=== PATIENT | male | born 1980 | race American Indian/Alaskan Native ===

== ENCOUNTER 2016-05-26 11:47 | Emergency (ER) | payer OTHER ==
[2016-05-26] MEDS ORDERED: TORADOL IM ONE (17:37)
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
[2016-05-26 18:16] VITALS: BP 106/73
== END 2016-05-26 18:15 | disposition home or self-care (01) ==
LOC: ED 11:47
DX: M54.5 Low back pain (principal); V79.5 Passenger on bus injured in collision with other and unspecified motor vehicles in traffic accident
CPT/HCPCS: 96372; 99282; J1885

== ENCOUNTER 2018-03-24 19:26 | Emergency (ER) | payer OTHER ==
[2018-03-24 19:37] VITALS: BP 105/77
[2018-03-24] MEDS ORDERED: DECADRON IM STA (20:12)
[2018-03-24] MEDS ORDERED: TORADOL IM ONE (20:12)
[2018-03-24] MEDS ORDERED: ZOFRAN ODT PO ONE (20:12)
--- NOTE | 2018-03-24 20:12 | Emergency Department Report ---
ED General Adult HPI - General Chief complaint: Back Pain/Injury Stated complaint: BACK PAIN, RT SHOULDER PAIN Time Seen by Provider: 03/24/18 19:50 Source: patient Mode of arrival: Ambulatory Limitations: No Limitations - History of Present Illness Initial comments: This is 37-year-old male here in ED with complaint of lower back pain and right shoulder pain after accidentally falling down 8 steps yesterday. He is reported in the pain is located in his shoulder joint and mid back 9 of the tendon achy. Worse with movement and no alleviating factors. He said he did not take any medication. Patient reports that when he fell and got up he felt weakness in his legs but he is able to ambulate. Denies any numbness certainly to extremities at present. Denies any nausea vomiting, abdominal pain or back pain. Denies any chest pain or shortness of breath. Patient denies any past medical problems. Denies a head injury or headache. Denies any loss of bowel or bladder function MD Complaint: fall Onset/Timin -: days(s) Location: back, right, upper extremity (right shoulder) Radiation: non-radiation Severity scale (0 -10): 9 Quality: aching Consistency: constant Improves with: none Worsens with: movement Associated Symptoms: denies: confusion, chest pain, cough, diaphoresis, fever/chills, headaches, loss of appetite, malaise, nausea/vomiting, rash, seizure Treatments Prior to Arrival: none - Related Data Previous Rx's Medication Instructions Recorded Last Taken Type Acetaminophen/Codeine [Tylenol 1 tab PO Q6H PRN #12 tab 03/24/18 Unknown Rx /Codeine # 3 tab] Cyclobenzaprine [Flexeril 10 MG 10 mg PO TID PRN #15 tablet 03/24/18 Unknown Rx TAB] Ibuprofen [Motrin 800 MG tab] 800 mg PO Q8HR PRN #20 tablet 03/24/18 Unknown Rx Allergies Allergy/AdvReac Type Severity Reaction Status Date / Time No Known Allergies Allergy Verified 03/24/18 19:33 ED Review of Systems ROS: Stated complaint: BACK PAIN, RT SHOULDER PAIN Other details as noted in HPI Constitutional: denies: chills, fever Eyes: denies: eye pain, vision change ENT: denies: epistaxis Respiratory: denies: cough, shortness of breath, wheezing Cardiovascular: denies: chest pain, palpitations, edema, syncope Gastrointestinal: denies: abdominal pain, nausea, vomiting, diarrhea, constipation Genitourinary: denies: urgency, dysuria, frequency, hematuria, discharge, testicular pain, testicular mass Musculoskeletal: back pain, arthralgia. denies: joint swelling, myalgia Skin: denies: rash Neurological: denies: headache, weakness, numbness, paresthesias, confusion, abnormal gait, vertigo ED Past Medical Hx - Past Medical History Previous Medical History?: No - Surgical History Past Surgical History?: No - Family History Family history: no significant - Social History Smoking Status: Current Every Day Smoker Substance Use Type: None - Medications Home Medications: Home Medications Medication Instructions Recorded Confirmed Last Taken Type Acetaminophen/Codeine [Tylenol 1 tab PO Q6H PRN #12 tab 03/24/18 Unknown Rx /Codeine # 3 tab] Cyclobenzaprine [Flexeril 10 MG 10 mg PO TID PRN #15 tablet 03/24/18 Unknown Rx TAB] Ibuprofen [Motrin 800 MG tab] 800 mg PO Q8HR PRN #20 tablet 03/24/18 Unknown Rx ED Physical Exam - General Limitations: No Limitations General appearance: alert, in no apparent distress - Head Head exam: Present: atraumatic, normocephalic, normal inspection, other (normal exam) - Eye Eye exam: Present: normal appearance, PERRL, EOMI Pupils: Present: normal accommodation - ENT ENT exam: Present: normal exam, normal orophraynx, mucous membranes moist - Neck Neck exam: Present: normal inspection, full ROM, other (no C-spine tenderness). Absent: tenderness, lymphadenopathy - Respiratory Respiratory exam: Present: normal lung sounds bilaterally. Absent: respiratory distress, chest wall tenderness - Cardiovascular Cardiovascular Exam: Present: regular rate, normal rhythm, normal heart sounds - GI/Abdominal GI/Abdominal exam: Present: soft, normal bowel sounds. Absent: distended, tenderness, rigid - Extremities Exam Extremities exam: Present: normal inspection, full ROM (pain or range of motion to right shoulder.), tenderness (RIGHT shoulder glenohumeral joints), normal capillary refill, calf tenderness, other (extremities physical exam.). Absent: pedal edema, joint swelling - Expanded Upper Extremity Exam Right General: Present: normal inspection. Absent: laceration, abrasion, amputation, avulsion Shoulder Exam: Present: normal inspection, full ROM (pain with range of motion, minimal), tenderness (right shoulder glenohumeral joint). Absent: swelling, abrasion, laceration, ecchymosis, deformity, crepidus, dislocation, erythema, tenderness over AC joint Upper Arm exam: Present: normal inspection, full ROM. Absent: tenderness, swelling, abrasion, laceration, ecchymosis, deformity, crepidus, dislocation, erythema Elbow exam: Present: normal inspection, full ROM. Absent: tenderness, swelling, abrasion, laceration, ecchymosis, deformity, crepidus, dislocation, erythema, effusion, pain w/ pronation/supination, tenderness over radial head Forearm Wrist exam: Present: normal inspection, full ROM. Absent: tenderness, swelling, abrasion, laceration, ecchymosis, deformity, crepidus, dislocation, erythema, tenderness over anatomical snuff box, pain with axial thumb loading Hand Wrist exam: Present: normal inspection, full ROM. Absent: tenderness, swelling, abrasion, laceration, ecchymosis, deformity, crepidus, dislocation, erythema, amputation, nail avulsion, subungual hematoma Neuro motor exam: Present: wrist extension intact, thumb opposition intact, thumb IP flexion intact, thumb adduction intact, fingers 2-5 abduction intact Neurosensory exam: Present: 2-point discrimination, radial nerve intact, ulnar nerve intact, median nerve intact Vascular: Present: normal capillary refill, radial pulse, brachial pulse, ulnar pulse. Absent: vascular compromise, Pallo, pulse deficit radial art, pulse deficit ulnar art, pulse deficit brachial art - Back Exam Back exam: Present: normal inspection (L,), full ROM, tenderness, paraspinal tenderness (bilateral lumbar paraspinal), vertebral tenderness (lumbar), other (ambulates without any difficulties). Absent: CVA tenderness (R), CVA tenderness (L), muscle spasm, rash noted - Expanded Back Exam Expanded Back exam: Absent: saddle anesthesia Back exam: Negative Straight Leg Raising: Left, Right - Neurological Exam Neurological exam: Present: alert, oriented X3, normal gait, reflexes normal, other (no focal deficits). Absent: motor sensory deficit - Psychiatric Psychiatric exam: Present: normal affect, normal mood - Skin Skin exam: Present: warm, dry, intact, normal color. Absent: rash ED Course Vital Signs 03/24/18 03/24/18 19:33 20:30 Temperature 98.6 F Pulse Rate 89 Respiratory 16 15 Rate Blood Pressure 105/77 O2 Sat by Pulse 95 Oximetry - Reevaluation(s) Reevaluation #1: 03/24/18 22:05 Patient received Decadron 10 mg and Toradol 60 mg IM in emergency room with relief of pain. ED Medical Decision Making - Radiology Data Radiology results: report reviewed, image reviewed (reviewed per myself and no acute findings noted.) X-ray lumbar sacral spine and x-ray right shoulder dictated by the radiologist interpreted by myself. No acute findings. I am unable to populate x-ray results of dissection due to deficit and radiology system. Please look at report for details - Medical Decision Making This is a 37-year-old male came to emergency room after falling in yesterday morning. He states that he slipped and fell down 8 steps without any head injury headache. He is only complaining of injury to his lower back and right shoulder. Patient is neurologically intact and back exam is normal except he has tenderness to bilateral paraspinal area and also to lumbar vitamins vertebrae. Patient able to ambulate without any difficulties. Patient denies any neck pain or injury. Patient was given Decadron 10 mg and Toradol 60 mg IM in emergency room. X-ray of right shoulder and lumbar spine reveals no acute findings. Patient with acute lower back pain, lower back strain and arthralgia of right shoulder. Vital signs stable with a febrile and pain is better and discharged home with prescription for Motrin, Tylenol 3 and Flexeril. I discussed with patient that he needs to rest for 3 days and Rice therapy explained and if he continues to have back and shoulder pain to follow up with orthopedic doctor in 3-5 days. - Differential Diagnosis fracture, subluxation, dislocation, strain, sprain, MSK pain Critical care attestation.: If time is entered above; I have spent that time in minutes in the direct care of this critically ill patient, excluding procedure time. ED Disposition Clinical Impression: Arthralgia of right shoulder region Accidental fall on or from stairs or steps Qualifiers: Encounter type: initial encounter Qualified Code(s): W10.8XXA - Fall (on) (from) other stairs and steps, initial encounter Low back strain Qualifiers: Encounter type: initial encounter Qualified Code(s): S39.012A - Strain of muscle, fascia and tendon of lower back, initial encounter Lower back pain Qualifiers: Chronicity: acute Back pain laterality: midline Sciatica presence: without sciatica Qualified Code(s): M54.5 - Low back pain Disposition: DC-01 TO HOME OR SELFCARE Is pt being admited?: No Does the pt Need Aspirin: No Condition: Stable Instructions: Low Back Strain (ED), Core Strengthening Exercises (GEN), Acute Low Back Pain (ED), Arthralgia (ED), Fall Prevention (ED), RICE Therapy (ED) Additional Instructions: Please follow up with primary care and also orthopedic doctor as referred in 3 to 5 days. If he do not have a primary care physician follow-up at this outside [facility] Take Motrin for mild to moderate pain and Flexeril for muscle strain and spasm. Please do not drive or operate heavy machinery while taking Flexeril as it causes drowsiness Take Tylenol 3 for severe pain but please do not drive or operate heavy machinery while taking this medication as it causes drowsiness. If his symptoms worsen please return to the emergency room otherwise follow-up with orthopedic and primary care Please follow discharge instruction in Rice therapy Prescriptions: Acetaminophen/Codeine [Tylenol /Codeine # 3 tab] 1 tab PO Q6H PRN #12 tab PRN Reason: Pain , Severe (7-10) Cyclobenzaprine [Flexeril 10 MG TAB] 10 mg PO TID PRN #15 tablet PRN Reason: muscle strain Ibuprofen [Motrin 800 MG tab] 800 mg PO Q8HR PRN #20 tablet PRN Reason: mild to moderate pain Referrals: [facility] [Outside] - 3-5 Days VIRGILIO VIDAL MD [Staff Physician] - 3-5 Days Forms: Work/School Release Form(ED)
--- NOTE | 2018-03-24 21:49 | XRay Report ---
FINAL REPORT EXAM: XR SPINE LUMBOSACRAL 2-3V HISTORY: fall with lower back pain TECHNIQUE: Lumbar spine five views PRIORS: None. FINDINGS: Vertebral bodies demonstrate normal height and alignment. The disc spaces are within normal limits. There is no evidence of spondylolisthesis. Transverse and spinous processes are intact SI joints are unremarkable. IMPRESSION: Negative lumbar spine series
--- NOTE | 2018-03-24 21:49 | XRay Report ---
FINAL REPORT EXAM: XR SHOULDER 2+V RT HISTORY: fall with right shoulder injury and pain TECHNIQUE: Three views right shoulder PRIORS: None. FINDINGS: No fractures are identified. No dislocation seen. The acromioclavicular joint is intact. Adjacent b óscar and soft tissue structures are unremarkable. IMPRESSION: Negative shoulder series
== END 2018-03-24 22:22 | disposition home or self-care (01) ==
LOC: ED 19:26
DX: S39.012A Strain of muscle, fascia and tendon of lower back, initial encounter (principal); M25.512 Pain in left shoulder; F17.200 Nicotine dependence, unspecified, uncomplicated; W10.9XXA Fall (on) (from) unspecified stairs and steps, initial encounter; Y93.89 Activity, other specified; Y99.8 Other external cause status; Y92.89 Other specified places as the place of occurrence of the external cause
CPT/HCPCS: 72100; 73030; 96372; 99283; J1100; J1885; Q0162